=== PATIENT | male | born 1960 | race African-American/Black ===

== ENCOUNTER 2019-04-28 14:32 | Emergency (ER) | payer OTHER ==
[~2019-04-28] VITALS: Ht 188 cm; Wt 100.0 kg
[2019-04-28] MEDS ORDERED: IBUPROFEN 800 MG TABLET PO ONE (16:45)
[2019-04-28 17:37] VITALS: BP 130/74
== END 2019-04-28 17:38 | disposition home or self-care (01) ==
LOC: EMS 14:38
DX: S96.911A Strain of unspecified muscle and tendon at ankle and foot level, right foot, initial encounter (principal); Z88.0 Allergy status to penicillin; W18.39XA Other fall on same level, initial encounter; Y93.89 Activity, other specified; Y92.89 Other specified places as the place of occurrence of the external cause; Y99.8 Other external cause status